=== PATIENT | female | born 1985 | race Caucasian/White ===

== ENCOUNTER 2021-04-09 08:26 | Emergency (ER) | payer SELFPAY ==
[~2021-04-09] VITALS: Ht 170.2 cm; Wt 109.0 kg
[2021-04-09 08:37] VITALS: BP 139/92
[2021-04-09] MEDS ORDERED: DIPH,PERTUSS(ACELL),TET VAC/PF 0.5 ML SYRINGE. VAX IM ONE (09:00)
[2021-04-09] MEDS ORDERED: AMOXICILLIN/K CLAV 875/125MG TABLET. PO ONE (09:00)
[2021-04-09] MEDS ORDERED: HYDROcodone/APAP 7.5/325MG 1 TAB TABLET PO ONE (09:00)
--- NOTE | 2021-04-09 09:01 | PHYS DOC ---
Past History Past Surgical History: Tonsillectomy Additional Past Surgical Histo: right ovary removed Alcohol Use: Occasionally Adult General Chief Complaint Chief Complaint: ANIMAL BITE HPI HPI Patient is a 36-year-old female presenting for dog bite. She reports her two one year old pit bulls got into a fight this morning, and she was bit when she broke up the fight at 0715. She reports that her lacerations on her left forearm and left leg bleed initially, but this has slowed down. She reports pain with palpation, and a tingling in her left hand, but sensation is intact in dermatomes C5, 6, 7 and L3, 4, and 5. She is unsure of her last tdap and has never had a rabies vaccine. She does not believe her dog is up to date on his va ccinations. She took Tylenol this morning prior to arrival, which helped to dull the pain. She reports a history of asthma, which she uses an inhaler once every few months. Patient denies fever, chills, chest pain, shortness of breath, nausea, and vomiting. Review of Systems Review of Systems Fourteen body systems of review of systems have been reviewed. See HPI for pertinent positives and negative responses, other enriquez all other systems are negative, non-pertinent or non-contributory Allergies Allergies Allergies Coded Allergies Type Severity Reaction Last Updated Verified metoclopramide Allergy Unknown 04/09/21 Yes morphine Allergy Unknown 04/09/21 Yes Physical Exam Physical Exam Constitutional: Well developed, well nourished, no acute distress, non-toxic appearance. HENT: Normocephalic, atraumatic, bilateral external ears normal, oropharynx moist, no oral exudates, nose normal. Eyes: PERRLA, EOMI, conjunctiva normal, no discharge. Neck: Normal range of motion, no tenderness, supple, no stridor. Cardiovascular: Heart rate regular, sinus rhythm, no murmurs rubs or gallops Lungs & Thorax: Bilateral breath sounds clear to auscultation Abdomen: Bowel sounds normal, soft, no tenderness, no masses, no pulsatile masses. Nonsurgical abdomen, no peritoneal signs Skin: Warm, dry, no erythema, no rash. Patient has superficial abrasion from dog bite to the left lateral portion of any overlying proximal fibular head. Patient also has numerous puncture wounds present to left forearm. There are x2 areas of significant laceration present on the dorsal portion of left forearm. Distal laceration linear and 2 cm in nature with minimal subcutaneous tissue involvement, proximal linear laceration 1 cm with minimal subcutaneous involvement. There is no palpable abnormalities. Remaining formal exams of left hand, wrist, elbow, humerus and shoulder are unremarkable Back: No tenderness, no CVA tenderness. Extremities: No tenderness, no cyanosis, no clubbing, ROM intact, no edema. Left forearm and left leg lacerations and ecchymosis Neurologic: Alert and oriented X 3, grossly normal motor & sensory function, no focal deficits noted. Psychologic: Anxious affect and mood Current Patient Data Vital Signs Vital Signs Date Time Temp Pulse Resp B/P (MAP) Pulse Ox O2 Delivery O2 Flow Rate FiO2 04/09/21 08:37 97.9 88 16 139/92 (108) 98 Room Air EKG EKG [] Radiology/Procedures Radiology/Procedures EXAM: Left knee, 3 views; left forearm, 2 views. HISTORY: Dog bite. COMPARISON: None. FINDINGS: Left knee: 3 views of the left knee are obtained. There is minimal medial compartment spurring. There is no fracture, dislocation or subluxation. There is no joint effusion or radiodense foreign body. Left forearm: 2 views of the lentiform are obtained. There is no fracture, dislocation or subluxation. There is soft tissue gas within the forearm. No radiodense foreign body is seen. IMPRESSION: 1. Soft tissue gas within the left forearm due to a reported recent penetrating injury. No foreign body or fracture is seen. 2. No acute osseous finding. Electronically signed by: Zoraida Almeida MD (04/09/2021 9:23 AM) [id number] Heart Score C/O Chest Pain: No Risk Factors: Risk Factors: DM, Current or recent (<one month) smoker, HTN, HLP, family history of CAD, obesity. Risk Scores: Risk Factors: DM, Current or recent (<one month) smoker, HTN, HLP, family history of CAD, obesity. Course & Med Decision Making Course & Med Decision Making ABCs unremarkable Patient had a laceration that was repaired in the ED after copious irrigation. After exploration of the wound, there was no evidence of a retained foreign body. No evidence of underlying fracture. TDAP: Updated today Interventions: Joint decision made to administer antibiotics given dog bite. Defer rabies vaccine is patient is at home dog and can be monitored. Short-term narcotic pain medication written for severe pain purposes Disposition: Discharge. Patient has been given strict wound return precautions and instructions to follow up with their PCP for a wound recheck and removal. Mac Disclaimer Gayleon Disclaimer This electronic medical record was generated, in whole or in part, using a voice recognition dictation system. Laceration Repair Lac Repair Laceration #1: 1 centimeter linear wound. Laceration #2: 2 cm linear wound distal forearm proximal forearm A time out was undertaken to determine that this was the correct patient and the correct procedure for this patient. The patients laceration was prepped and cleansed in the usual fashion. Alcohol prep pads were used to cleanse arm and a total of 1.5 cc 1% lidocaine with epinephrine used for laceration #1 a total of 2 cc 1% lidocaine with epinephrine used for laceration #2 It was then copiously irrigated with normal saline with high pressure and high volume. The wound was explored in a clear and bloodless field to the base of the wound. There was no evidence of underlying fracture or foreign body. x2 nonabsorbable 4.0 sutures were placed in a simple interrupted fashion to close the wound #1. x2 nonabsorbable 4.0 sutures were placed in a simple interrupted fashion to close the wound #2 Excellent care was taken to achieve maximal cosmesis. The patient tolerated this procedure well there were no observed nor reported complications. Departure Departure: Impression: Primary Impression: Dog bite of extremity Disposition: 01 HOME / SELF CARE / HOMELESS Condition: STABLE Referrals: PCP,NO (PCP) Patient Instructions: Laceration Care, Adult Additional Instructions: You were seen for a laceration. Keep the area clean and dry. You should return to the ED or your PCP office to get your sutures removed in 7-10 days. You had a total of times 4 sutures applied so please be sure the following provider removes all of these. Please take your antibiotics as scheduled to completion. Your tetanus shot was updated today. Please monitor your dogs for any concerning signs or symptoms of rabies infection. Return to the ED immediately if you develop any signs of infection like increased pain, redness, fever, or purulent (pus) drainage. Do not take baths, submerge the wound, or use a hot tub until your stitches are removed and the wound is healed. Scripts Amoxicillin/Potassium Clav (AUGMENTIN 875-125 TABLET) 1 Each Tablet 1 TAB PO BID for dog bite for 7 Days, #13 TAB 0 Refills Prov: BRENDAN ELDER DO 04/09/21 Hydrocodone Bit/Acetaminophen (HYDROCODONE-APAP 7.5-325 ) 1 Each Tablet 1 TAB PO PRN Q6HRS PRN for PAIN, #10 TAB 0 Refills Prov: BRENDAN ELDER DO 04/09/21 BRENDAN ELDER DO Apr 09, 2021 09:01
--- NOTE | 2021-04-09 09:26 | RAD ---
EXAM: Left knee, 3 views; left forearm, 2 views. HISTORY: Dog bite. COMPARISON: None. FINDINGS: Left knee: 3 views of the left knee are obtained. There is minimal medial compartment spurring. There is no fracture, dislocation or subluxation. There is no joint effusion or radiodense foreign body. Left forearm: 2 views of the lentiform are obtained. There is no fracture, dislocation or subluxation . There is soft tissue gas within the forearm. No radiodense foreign body is seen. IMPRESSION: 1. Soft tissue gas within the left forearm due to a reported recent penetrating injury. No foreign faby dy or fracture is seen. 2. No acute osseous finding. Electronically signed by: Zoraida Almeida MD (04/09/2021 9:23 AM) [id number]
[2021-04-09] MEDS ORDERED: HYDR-2765 PO (09:52)
[2021-04-09] MEDS ORDERED: AMOX1TAB61 PO (09:54)
== END 2021-04-09 10:16 | disposition home or self-care (01) ==
LOC: ER 08:26
DX: S51.812A Laceration without foreign body of left forearm, initial encounter (principal); Z88.6 Allergy status to analgesic agent; W54.0XXA Bitten by dog, initial encounter; Y93.89 Activity, other specified; Y92.89 Other specified places as the place of occurrence of the external cause; Y99.8 Other external cause status
CPT/HCPCS: 12002; 73090; 73562; 90471; 90715; 99284-25

== ENCOUNTER 2021-04-11 13:25 | Emergency (ER) | payer SELFPAY ==
[~2021-04-11] VITALS: Ht 170.2 cm; Wt 109.0 kg
[~2021-04-11 13:25] MED LIST: AMOX1TAB61 PO; HYDR-2765 PO
[2021-04-11 13:34] VITALS: BP 133/88
[2021-04-11] MEDS ORDERED: SULF1TAB24 PO (13:45)
--- NOTE | 2021-04-11 13:45 | PHYS DOC ---
Past History Past Surgical History: Tonsillectomy Additional Past Surgical Histo: right ovary removed Alcohol Use: Occasionally General Adult EDM: Chief Complaint: WOUND CHECK HPI: HPI: 36-year-old female returns the emergency room with left forearm dog bite and concern for expanding infection. The patient was given a tetanus shot and is on Augmentin. The dog bite happened 3 days ago on . She comes in today because it seems to be more painful and the redness around the area is expanding. She thinks it may be infected and getting worse. She has had no purulent discharge. She has no other complaints this time. Review of Systems: Review of Systems: Constitutional: Denies fever or chills Eyes: Denies change in visual acuity HENT: Denies nasal congestion or sore throat Respiratory: Denies cough or shortness of breath Cardiovascular: Denies chest pain or edema GI: Denies abdominal pain, nausea, vomiting, bloody stools or diarrhea : Denies dysuria Musculoskeletal: Denies back pain or joint pain Integument: Cellulitis left forearm Neurologic: Denies headache, focal weakness or sensory changes Endocrine: Denies polyuria or polydipsia Lymphatic: Denies swollen glands Psychiatric: Denies depression or anxiety Allergies: Allergies: Allergies Coded Allergies Type Severity Reaction Last Updated Verified metoclopramide Allergy Unknown 04/09/21 Yes morphine Allergy Unknown 04/09/21 Yes Physical Exam: PE: Constitutional: Well developed, well nourished, no acute distress, non-toxic appearance. [] HENT: Normocephalic, atraumatic, bilateral external ears normal, oropharynx moist, no oral exudates, nose normal. [] Eyes: PERRLA, EOMI, conjunctiva normal, no discharge. [] Neck: Normal range of motion, no tenderness, supple, no stridor. [] Cardiovascular:Heart rate regular rhythm, no murmur [] Lungs & Thorax: Bilateral breath sounds clear to auscultation [] Abdomen: Bowel sounds normal, soft, no tenderness, no masses, no pulsatile masses. [] Skin: Hot, erythematous skin of the left forearm with evidence of recent lacer ations [] Back: No tenderness, no CVA tenderness. [] Extremities: No tenderness, no cyanosis, no clubbing, ROM intact, no edema. [] Neurologic: Alert and oriented X 3, normal motor function, normal sensory function, no focal deficits noted. [] Psychologic: Affect normal, judgement normal, mood normal. [] Current Patient Data: Vital Signs: Vital Signs Date Time Temp Pulse Resp B/P (MAP) Pulse Ox O2 Delivery O2 Flow Rate FiO2 04/11/21 13:34 98.1 74 18 133/88 (103) 100 Room Air EKG: EKG: [] Radiology/Procedures: Radiology/Procedures: [] Heart Score: C/O Chest Pain: N/A Risk Factors: Risk Factors: DM, Current or recent (<one month) smoker, HTN, HLP, family history of CAD, obesity. Risk Scores: Score 0 - 3: 2.5% MACE over next 6 weeks - Discharge Home Score 4 - 6: 20.3% MACE over next 6 weeks - Admit for Clinical Observation Score 7 - 10: 72.7% MACE over next 6 weeks - Early Invasive Strategies Course & Med Decision Making: Course & Med Decision Making Pertinent Labs and Imaging studies reviewed. (See chart for details) The patient's skin does appear to have expanding cellulitis. The Augmentin does not seem to be covering this bacteria. I will add Bactrim to the patient's regimen. If it continues to worsen than 36 hours she may need to be admitted for IV antibiotics. She is stable for discharge at this time. [] Mac Disclaimer: Mac Disclaimer: This electronic medical record was generated, in whole or in part, using a voice recognition dictation system. Departure Departure: Impression: Primary Impression: Cellulitis of left forearm Additional Impression: Dog bite of left forearm with infection Qualified Codes: S51.852A - Open bite of left forearm, initial encounter; L08.9 - Local infection of the skin and subcutaneous tissue, unspecified; W54.0XXA - Bitten by dog, initial encounter Disposition: HOME / SELF CARE / HOMELESS Condition: STABLE Referrals: PCP,NO (PCP) Patient Instructions: Cellulitis, [id number] Scripts Sulfamethoxazole/Trimethoprim (BACTRIM DS TABLET) 1 Each Tablet 1 TAB PO BID for cellulitis for 7 Days, #14 TAB 0 Refills Prov: BARBER OVALLES DO 04/11/21 BARBER OVALLES DO Apr 11, 2021 13:45
== END 2021-04-11 13:59 | disposition home or self-care (01) ==
LOC: ER 13:25
DX: S51.852A Open bite of left forearm, initial encounter (principal); L03.114 Cellulitis of left upper limb; L08.9 Local infection of the skin and subcutaneous tissue, unspecified; W54.0XXA Bitten by dog, initial encounter; Y93.89 Activity, other specified; Y92.89 Other specified places as the place of occurrence of the external cause; Y99.8 Other external cause status
CPT/HCPCS: 99283-25

== ENCOUNTER 2021-10-05 15:59 | Emergency (ER) | payer SELFPAY ==
[~2021-10-05] VITALS: Ht 170.2 cm; Wt 113.9 kg
[~2021-10-05 15:59] MED LIST changes: +SULF1TAB24 PO
[2021-10-05] MEDS ORDERED: PENI500T PO (16:47)
--- NOTE | 2021-10-05 16:47 | PHYS DOC ---
Past History Past Surgical History: Tonsillectomy, Tubal ligation Additional Past Surgical Histo: right ovary removed Alcohol Use: Occasionally General Adult EDM: Chief Complaint: SORE THROAT HPI: HPI: 36-year-old female presents with 3-day history of sore throat. The patient feels like it is getting worse and is now painful to swallow anything. She also feels like she has a fever. On arrival her fever was 100.7. She has no other complaints at this time. Review of Systems: Review of Systems: Constitutional: Fever Eyes: Denies change in visual acuity HENT: sore throat Respiratory: Denies cough or shortness of breath Cardiovascular: Denies chest pain or edema GI: Denies abdominal pain, nausea, vomiting, bloody stools or diarrhea : Denies dysuria Musculoskeletal: Denies back pain or joint pain Integument: Denies rash Neurologic: Denies headache, focal weakness or sensory changes Endocrine: Denies polyuria or polydipsia Lymphatic: Denies swollen glands Psychiatric: Denies depression or anxiety Allergies: Allergies: Allergies Coded Allergies Type Severity Reaction Last Updated Verified metoclopramide Allergy Unknown 10/05/21 Yes morphine Allergy Unknown 10/05/21 Yes Physical Exam: PE: Constitutional: Well developed, well nourished, morbidly obese, no acute distress, non-toxic appearance. [] HENT: Normocephalic, atraumatic, bilateral external ears normal, oropharynx erythematous with bilateral tonsillar fossa exudates, nose normal. [] Eyes: PERRLA, EOMI, conjunctiva normal, no discharge. [] Neck: Normal range of motion, no tenderness, supple, no stridor. [] Cardiovascular: Heart rate regular rhythm, no murmur [] Lungs & Thorax: Bilateral breath sounds clear to auscultation [] Abdomen: Bowel sounds normal, soft, no tenderness, no masses, no pulsatile masses. [] Skin: Warm, dry, no erythema, no rash. [] Back: No tenderness, no CVA tenderness. [] Extremities: No tenderness, no cyanosis, no clubbing, ROM intact, no edema. [] Neurologic: Alert and oriented X 3, normal motor function, normal sensory function, no focal deficits noted. [] Psychologic: Affect normal, judgement normal, mood normal. [] Current Patient Data: Vital Signs: Vital Signs Date Time Temp Pulse Resp B/P (MAP) Pulse Ox O2 Delivery O2 Flow Rate FiO2 10/05/21 16:33 100.7 99 18 140/91 (107) 100 Room Air EKG: EKG: [] Radiology/Procedures: Radiology/Procedures: [] Heart Score: C/O Chest Pain: N/A Risk Factors: Risk Factors: DM, Current or recent (<one month) smoker, HTN, HLP, family history of CAD, obesity. Risk Scores: Score 0 - 3: 2.5% MACE over next 6 weeks - Discharge Home Score 4 - 6: 20.3% MACE over next 6 weeks - Admit for Clinical Observation Score 7 - 10: 72.7% MACE over next 6 weeks - Early Invasive Strategies Course & Med Decision Making: Course & Med Decision Making Pertinent Labs and Imaging studies reviewed. (See chart for details) The patient's exam is consistent with strep pharyngitis. Patient's rapid strep is positive. I will treat her with penicillin for 10 days. Patient stable for discharge at this time. [] Mac Disclaimer: Mac Disclaimer: This electronic medical record was generated, in whole or in part, using a voice recognition dictation system. Departure Departure: Impression: Primary Impression: Strep pharyngitis Disposition: HOME / SELF CARE / HOMELESS Condition: STABLE Referrals: PCP,PAOLA (PCP) Patient Instructions: Strep Throat, [id number] Scripts Penicillin V Potassium (PENICILLIN V POTASSIUM) 500 Mg Tablet 1 TAB PO BID for strep throat, #20 TAB Prov: BARBER OVALLES DO 10/05/21 BARBER OVALLES DO October 05, 2021 16:47
[2021-10-05 18:32] VITALS: BP 124/72
== END 2021-10-05 18:32 | disposition home or self-care (01) ==
LOC: ER 15:59
DX: J02.0 Streptococcal pharyngitis (principal); Z90.89 Acquired absence of other organs; Z98.51 Tubal ligation status; Z90.710 Acquired absence of both cervix and uterus
CPT/HCPCS: 87880; 99285